=== PATIENT | male | born 1935 | race Caucasian/White ===

== ENCOUNTER 2021-11-14 19:42 | Inpatient (IN) | payer BC ==
[~2021-11-14] VITALS: Ht 172.7 cm; Wt 83.9 kg
[2021-11-14 19:51] VITALS: BP_SYST 122
--- NOTE | 2021-11-14 19:51 | NUR ---
Patient to ER bed 5 to gown for evaluation. Side rails up. Report given to Lu HAND.
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
--- NOTE | 2021-11-14 20:40 | NUR ---
ADDIS FROST Kwaw at bedside examining patient.
--- NOTE | 2021-11-14 20:45 | NUR ---
Lab at bedside
[2021-11-14 21:09] LABS: BASOPHILS # (AUTO) 0.1 K/uL (0.0-0.2); BASOPHILS % (AUTO) 1.1 % (0.0-2.0); EOSINOPHILS # (AUTO) 0.2 K/uL (0.0-0.4); EOSINOPHILS % (AUTO) 2.7 % (0.0-4.0); HEMATOCRIT 38.3 % (36-54); LYMPHOCYTES # (AUTO) 1.5 K/uL (1.0-5.5); LYMPHOCYTES % (AUTO) 16.5 % (20.5-51.5); MEAN CORPUSCULAR VOLUME 89 fL (79.0-98.0); MONOCYTES # (AUTO) 0.6 K/uL (0.0-1.0); MONOCYTES % (AUTO) 6.9 % (1.7-9.3); NEUTROPHILS # (AUTO) 6.7 K/uL (1.8-7.7); NEUTROPHILS % (AUTO) 72.8 % (40.0-70.0); PLATELET COUNT (AUTO) 297 K/uL (130-430); RED BLOOD CELL COUNT(AUTO) 4.29 MIL/uL (4.2-6.2); RED CELL DISTRIBUTION WIDTH 14.4 % (9.0-15.0); WHITE BLOOD COUNT (AUTO) 9.2 K/uL (4.8-10.8)
[2021-11-14 21:15] LABS: BILIRUBIN,URINE NEGATIVE (NEGATIVE); BLOOD, URINE NEGATIVE (NEGATIVE); CLARITY/URINE CLEAR (CLEAR); COLOR,URINE YELLOW (YELLOW); GLUCOSE,URINE NEGATIVE (NEGATIVE); KETONES,URINE TRACE (NEGATIVE); LEUKOCYTE ESTERASE ,URINE NEGATIVE (NEGATIVE); NITRITE, URINE NEGATIVE (NEGATIVE); PROTEIN URINE NEGATIVE (NEGATIVE); UROBILINOGEN,URINE 0.2 (0.2-1.0)
[2021-11-14 21:22] LABS: ANION GAP 8 (5-15); CALCIUM 9.9 mg/dL (8.4-11.0); CHLORIDE 102 mmol/L (98-107); GLUCOSE 151 mg/dL (70-99); POTASSIUM 3.9 mmol/L (3.5-5.1); UREA NITROGEN, BLOOD 18 mg/dL (8-21)
--- NOTE | 2021-11-14 21:25 | NUR ---
Admit bed requested Patient will be admitted to care of . Admitted to MED SURG unit. Diagnosis AGRESSIVE BEHAVIOR/AGITATION Inpatient (Yes or No) N Observation (Yes or No) Y Orientation concerns or request close to nursing station (Yes or No) Y Covid Status PENDING On vent or bipap N Isolation requirements N Needs a sitter Y From Home (Yes or if No enter name of facility) [facility] Requires Dialysis (Yes or No) N Med Rec Completed (Yes of No) Y
[2021-11-14 21:31] LABS: ALANINE AMINOTRANSFERASE 11 U/L (12-78); ALBUMIN 3.8 g/dL (3.4-4.8); ASPARTATE AMINOTRANSFERASE 18 U/L (10-37); TOTAL BILIRUBIN 0.7 mg/dL (0.0-1.0)
--- NOTE | 2021-11-14 21:50 | NUR ---
Covid and MRSA swab done and sent to Lab.
--- NOTE | 2021-11-14 22:00 | NUR ---
Patient resting in bed with side rails raised. Safety procautions in place. Requesting sitter for patient; notified charge nurse. No sitter available at this time, patient visible from nursing station. Patient states "I was upset earlier, but I'm okay now." Nad noted at this time.
--- NOTE | 2021-11-14 22:21 | NUR ---
# 20 gauge angiocath placed to right AC. Use of asceptic technique. Opsite placed over site. Blood return noted. Flushed with 10 cc of normal saline. No evidence of infiltration noted. Patient tolerated well.
[2021-11-14] MEDS ORDERED: RIVA15TA PO (22:59)
[2021-11-14] MEDS ORDERED: SER25 PO (22:59)
[2021-11-14] MEDS ORDERED: METF-518 PO (22:59)
[2021-11-14] MEDS ORDERED: CARB1TAB10 PO (22:59)
[2021-11-14] MEDS ORDERED: SENN-291 (22:59)
[2021-11-14] MEDS ORDERED: BISACODYL RC (22:59)
[2021-11-14] MEDS ORDERED: PEPTAB PO (22:59)
[2021-11-14] MEDS ORDERED: ALPR0.5T PO ×2 (22:59)
[2021-11-14] MEDS ORDERED: PROP10DR2 EACH EYE (22:59)
[2021-11-14] MEDS ORDERED: DIGO250T PO (22:59)
[2021-11-14] MEDS ORDERED: NEOM1OIN19 TP (22:59)
[2021-11-14] MEDS ORDERED: GUAI100S14 PO (22:59)
[2021-11-14] MEDS ORDERED: ACET325T PO (22:59)
[2021-11-14] MEDS ORDERED: VITD2000 PO (22:59)
--- NOTE | 2021-11-14 22:59 | NUR ---
Medication reconciliation completed with information provided by patient . Any prior medication reconciliation on file was reviewed and corrected.
--- NOTE | 2021-11-14 23:16 | NUR ---
Patient will be admitted to care of DR HAWKINS. Admitted to MED SURG unit. Will go to room 121 B. Belongings list completed. Complete and up to date summary report printed. SBAR report given to YAZAN Griffin at bedside with opportunity for questions.
--- NOTE | 2021-11-14 23:45 | NUR ---
ADMIT NOTE Received pt from ER to the floor with a diagnosis of Severe Agitation and Aggressive Behavior. SBAR report provided by ER nurse YAZAN Diehl. Patient is disoriented and trying to get out of bed and pulling at IV. Pt put in Trendelenburg position to keep from falling out of bed and was immediately effective. Pt is AOx1 and was oriented to being in hospital and room number. Pt in room with two other pts who require a sitter, nurse is sitter for all three patients. Admission process initiated.
[2021-11-15] VITALS: BP_SYST 144
--- NOTE | 2021-11-15 00:15 | NUR ---
Restraints Pt is disoriented and restless pulling at IV, removing clothes and chucks, and trying to get out of bed. Pt is in a room with RN as sitter. Bilateral soft wrist restraint were ordered and initiated at 0000. Pt tugging at restraints but does not appear to be additionally agitated. Pt still pulling chucks off.
[2021-11-15 06:00] VITALS: BP_SYST 147
--- NOTE | 2021-11-15 07:15 | NUR ---
Closing Notes Patient was calm and able to rest/sleep for a few hours this morning. Took his vital signs and assessed wrist from restraints use; no new skin issues. Pt much more alert but still confused. Pt assisted in bed bath, ivon care, and linen change by rolling side to side. Pt restraints were off during nursing interventions and put back on with more slack. Day sitter is present. Addendum: 11/15/21 at 1249 by [facility], YAZAN HAND Spoke with Mrs Zhao confirmed pt has no allergies. Notified pharmacy. Patient profile updated.
[2021-11-15 08:35] VITALS: BP_SYST 158
[2021-11-15 11:38] VITALS: BP_SYST 118
[2021-11-15 16:15] VITALS: BP_SYST 130
--- NOTE | 2021-11-15 19:30 | NUR ---
OPENING NOTES Received updated report from day nurse. Pt is laying awake in bed with a vague distant look and does not acknowledge me. He is softly mumbling to himself. Vital signs collected, IV flushed and patent, restraints loosened, and safety measures initiated.
[2021-11-15] MEDS: LORazepam 2 MG/ML VIAL IVP PRN (22:36)
--- NOTE | 2021-11-16 | NUR ---
Restraints discontinued Restraints have been discontinued to allow 24 hours of restraint and sitter free so he can return back to [facility].
[2021-11-16 00:34] VITALS: BP_SYST 131
[2021-11-16 08:00] VITALS: BP_SYST 138
[2021-11-16 12:00] VITALS: BP_SYST 142
[2021-11-16 17:22] VITALS: BP_SYST 124
[2021-11-16 20:00] VITALS: BP_SYST 127
[2021-11-16] MEDS: LORazepam 2 MG/ML VIAL IVP PRN (20:09)
--- NOTE | 2021-11-16 21:07 | NUR ---
Patient in bed resting at this time. Prn given for agitation. Turned repositioned q2. Will continue to monitor.
[2021-11-17 08:00] VITALS: BP_SYST 134
[2021-11-17] MEDS ORDERED: RIVAROXABAN 15 MG TABLET PO ONE (09:00)
[2021-11-17] MEDS ORDERED: DIGOXIN 0.25 MG TABLET PO ONE (09:00)
--- NOTE | 2021-11-17 10:53 | NUR ---
DC orders received for discharge back to [facility]. CREDIT CARD INTERVIEWER contacted [facility] patient was living in the Assisted Living side of the facility and brought in to [facility] for agitation, has since been stabilized, hx of Dimentia . CREDIT CARD INTERVIEWER informed facility that Pt. is ready to be transferred back, was notified that they were unsure if Pt. would be readmitted today, no intake staff available and would return call in 2 hours. Pt. is also HCP, this telegraphic typewriter operator prepared DC packet and faxed to , contacted weekend slot floor person for HCP DAVID Rodriguez informed of DC orders advised that HCP system is down and theyre might be a delay in discharges this weekend. Addendum: 11/17/21 at 1152 by Aida Blair LCSW Received call from daughter to inquire if psych consult had been completed, no note for consult in chart. Spoke with RN for follow up with previously requested psych consult. RN indicate she would consult with treating MD as he was medically cleared but psych consult remains pending.
--- NOTE | 2021-11-17 11:46 | NUR ---
Received phone call from correctional counselor/case manager Khadijah TannerStated patient has a discharge order with a psych evaluation order pending. I spoke with A Ric FROST regarding pending psych consult. informed me to discontinue psych consult order.I informed case manger per MD discontinue psych consult, not needed.
[2021-11-17 12:00] VITALS: BP_SYST 126
[2021-11-17 16:00] VITALS: BP_SYST 122
--- NOTE | 2021-11-17 19:38 | NUR ---
1934: RECEIVED PT CALM, CONFUSED, VSS. BED ALARM ON, BED IN LOW POSITION. NEAR NURSES STATION.
--- NOTE | 2021-11-17 19:39 | NUR ---
RECEIVED PT LYING IN BED, NO DISTRESS NOTED, AAOX2, O2 2L O2 SAT 96%. DOUBLE LUMEN PICC LINE TO LUE. F/C DRAINING TEA COLOR URINE. MILD EDEMA TO BLE ELEVATED ON PILLOWS. WEAK PULSES NOTED TO BLE. REPOSITIONED TO RT SIDE. Addendum: 11/17/21 at 2251 by [facility] YAZAN Willingham RN THIS NOTE IS NOT INTENDED FOR THIS PT
--- NOTE | 2021-11-17 20:00 | NUR ---
RECEIVED THIS [place] LYING IN BED, NO DISTRESS NOTED, DENIES PAIN. CONFUSED, ATTEMPTING TO GRAB MY ARM UPON REPOSITIONING. SALINE LOCK TO LT FA SITE WRAPPED. PUTS LEGS OVER RAIL. BED IN LOW POSITION, BED ALARM ON.
[2021-11-18 00:24] VITALS: BP_SYST 136
--- NOTE | 2021-11-18 07:14 | NUR ---
0715: PT LYING IN BED, ATTEMPTING TO REMOVE GOWN. ENDORSED TO JONATAN RN PT ATTEMPT TO GET OUT OF BED AND EXHIBITS AGGRESSIVE BEHAVIOR.
--- NOTE | 2021-11-18 07:18 | NUR ---
SBAR REPORT RECEIVED FROM ALEXANDRA HAND, ALL CARES ASSUMED. PT LAYING IN BED WITH EYES CLOSED. BED IN LOW AND LOCKED POSITION, CALL LIGHT WITHIN REACH.
[2021-11-18 08:00] VITALS: BP_SYST 127
[2021-11-18] MEDS: RIVAROXABAN 15 MG TABLET PO SCH (09:22)
--- NOTE | 2021-11-18 10:30 | NUR ---
PT ASKING "HOW WAS YOUR TRIP?", THIS NURSE ATTEMPTED TO REORIENT PT. PT ASKED AGAIN ABOUT GOING ON A FLIGHT SOMEWHERE. WILL CONTINUE TO REORIENT NEEDED. PT CALM AND COOPERATIVE.
--- NOTE | 2021-11-18 14:30 | NUR ---
BED BATH DONE, LINENS AND GOWN CHANGED. PT TOLERATED WELL.
[2021-11-18 18:06] VITALS: BP_SYST 131
--- NOTE | 2021-11-18 19:26 | NUR ---
Opening note Received patient resting in bed, awake, AOx1. No distress, on room air, non labored breathing, skin is warm, dry. IV to LFA is SL. He was reposition with assistance of day shift nurse YAZAN Cramer. Bed is locked in locked in lowest position, side rails up and bed alarm on.
--- NOTE | 2021-11-18 19:36 | NUR ---
SBAR REPORT GIVEN TO LEX HAND, ALL CARES ENDORSED.
[2021-11-18 20:00] VITALS: BP_SYST 134
[2021-11-19 00:50] VITALS: BP_SYST 137
--- NOTE | 2021-11-19 00:50 | NUR ---
V/S, patient care VSS, patient was provided with bed bath, new linens and repositioned-turned. He was not aggressive nor combative.
--- NOTE | 2021-11-19 04:15 | NUR ---
rounds, reposition Patient is calm, resting with eyes closed. He was momentarily awakened for reposition and ivon-care. He opened his eyes, spoke garbled words, yet he was calm, and cooperative. He closed his eyes again. Safety precautions in place.
--- NOTE | 2021-11-19 07:10 | NUR ---
SBAR REPORT RECEIVED FROM LEX HAND, ALL CARES ASSUMED. PT LAYING IN BED WITH EYES CLOSED. BED IN LOW AND LOCKED POSITION, BED ALARM ACTIVE. CALL LIGHT WITHIN REACH.
--- NOTE | 2021-11-19 07:14 | NUR ---
closing note Patient resting in comfortable position. No distress, no agitation. He was provided with ivon-care and was not combative. Patient is stable. endorsed care to YAZAN Cramer
[2021-11-19 08:00] VITALS: BP_SYST 124
[2021-11-19] MEDS: RIVAROXABAN 15 MG TABLET PO SCH (09:11)
[2021-11-19 12:05] VITALS: BP_SYST 122
--- NOTE | 2021-11-19 12:33 | NUR ---
CALLED AND LEFT MESSAGE FOR PT DC BACK TO [facility].
[2021-11-19] MEDS ORDERED: SENNOSIDES/DOCUSATE SODIUM 1 TAB TABLET(SENOKOT-S) PO PRN (12:45)
[2021-11-19] MEDS ORDERED: guaiFENesin 200 MG/10 ML UDC PO PRN (12:45)
--- NOTE | 2021-11-19 13:21 | NUR ---
LEFT MESSAGE WITH [facility] REQUESTING FOR PHONE BACK RE DC BACK TO THE FACILITY.
[2021-11-19] MEDS ORDERED: BISACODYL 10 MG/SUPPOSITORY RC PRN (13:30)
--- NOTE | 2021-11-19 13:33 | NUR ---
[facility] CALLED BACK , [facility] SPOKE WITH PT'S RN.
[2021-11-19] MEDS ORDERED: NEOMY SULF/BACITRAC ZN/POLY 28 GM OINT..GM. TP PRN (13:45)
--- NOTE | 2021-11-19 15:06 | NUR ---
MARIA L MADE AWARE THAT [facility] IS ACCEPTING PT BUT PT OR INSURANCE WILL PROVIDE AMBULANCE. MARIA L SAID SHE WILL TOUCH BASE WITH FAMILY IT INVOLVES EXPENSES AND SHE WILL CALL US BACK.
[2021-11-19] MEDS: CARBIDOPA/LEVODOPA 25/100 MG TABLET PO SCH ×3 (15:07→20:48)
[2021-11-19 15:15] VITALS: BP_SYST 129
[2021-11-19] MEDS ORDERED: PEG 400/HYPROMELLOSE/GLYCERIN 15 ML DROPS EACH EYE PRN (17:00)
--- NOTE | 2021-11-19 18:39 | NUR ---
PER RN JONATAN, [facility] CALLED TELLING HER NOT TO SEND THE PATIENT. JONATAN NO ABLE TO GET NURSE'S NAME. LEFT MESSAGE TO MARIA L AT [phone].
[2021-11-19] MEDS: metFORMIN HCL 500 MG TABLET PO SCH (18:45)
--- NOTE | 2021-11-19 19:30 | NUR ---
SBAR report done. Pt's sleeping in bed w/o distress.
--- NOTE | 2021-11-19 19:41 | NUR ---
SBAR REPORT GIVEN TO NIGHT RN, ALL CARES ENDORSED.
[2021-11-19 20:00] VITALS: BP_SYST 121
[2021-11-19] MEDS ORDERED: QUEtiapine FUMARATE 25 MG TABLET PO SCH (21:00)
[2021-11-19] MEDS ORDERED: ALPRAZolam 0.25 MG TABLET PO SCH (21:00)
[2021-11-19] MEDS ORDERED: ALPRAZolam 0.25 MG TABLET PO PRN (21:00)
[2021-11-20 08:30] VITALS: BP_SYST 118
[2021-11-20] MEDS ORDERED: RIVAROXABAN 15 MG TABLET PO SCH (09:00)
[2021-11-20] MEDS ORDERED: DIGOXIN 0.25 MG TABLET PO SCH (09:00)
[2021-11-20] MEDS ORDERED: CHOLECALCIFEROL (VITAMIN D3) 2,000 UNIT TABLET PO SCH (09:00)
[2021-11-20] MEDS: metFORMIN HCL 500 MG TABLET PO SCH (09:09)
[2021-11-20] MEDS: CARBIDOPA/LEVODOPA 25/100 MG TABLET PO SCH (09:11)
[2021-11-20] MEDS: RIVAROXABAN 15 MG TABLET PO SCH (09:16)
--- NOTE | 2021-11-20 09:18 | NUR ---
received message from Lynn charge last night stating that [facility] called and indicate not accepting patient. 11/20/21 called [facility] 9:15 am spoke with Gaby , provided above information. Gaby confirmed patient can be sent back to [facility]. When you call [phone] asked to be transfer to Memory care Unit. called the floor and spoke with Lora provided information and asked her to call [facility] ambulance to transfer [phone] trk# [id number]
--- NOTE | 2021-11-20 09:33 | NUR ---
[facility] POLICE SHIFT COMMANDER AT 2PM FOR [facility]
--- NOTE | 2021-11-20 11:00 | NUR ---
PT SEEN SITTING ON THE FOOT OF BED, PT TRYING TO GET UP BUT UNABLE DUE TO WEAKNESS. Addendum: 11/20/21 at 1254 by Harvey Crenshaw RN ASSISTED KELLY TO BED.
--- NOTE | 2021-11-20 12:30 | NUR ---
PT ASSISTED BACK TO BED AFTER EATING A FEW BITES FROM HIS LUNCH TRAY. PT SAT ON THE EOB.
[2021-11-20 13:21] VITALS: BP_SYST 120
[2021-11-20 13:24] VITALS: BP_SYST 120
--- NOTE | 2021-11-20 13:40 | NUR ---
REPORT GIVEN TO JOELLE POLO OF [facility].
--- NOTE | 2021-11-20 16:00 | NUR ---
DC PATIENT. PT DISCHARGED TO [facility]. PT ON STABLE CONDITION. PT PICKED UP BY AMBULANCE STAFF/ REPORT WAS GIVEN EARLIER TO NURSE. FAMILY IS MADE AWARE.
== END 2021-11-20 16:00 | DRG 57 ==
LOC: SED 19:42 → SMU 21:23 → OBSVTOIN 11-16 10:47
PROVIDERS: ADMIT Internal Medicine; ATTEND Internal Medicine
DX: G20 Parkinson's disease (principal); R65.10 Systemic inflammatory response syndrome (SIRS) of non-infectious origin without acute organ dysfunction; I11.0 Hypertensive heart disease with heart failure; Z20.822 Contact with and (suspected) exposure to COVID-19; F02.80 Dementia in other diseases classified elsewhere, unspecified severity, without behavioral disturbance, psychotic disturbance, mood disturbance, and anxiety; I48.91 Unspecified atrial fibrillation; I50.9 Heart failure, unspecified; Z79.82 Long term (current) use of aspirin; Z79.899 Other long term (current) drug therapy; Z79.1 Long term (current) use of non-steroidal anti-inflammatories (NSAID)
CPT/HCPCS: 36415; 80053; 81003; 84484; 85025; 87081; 93005; G0378; J2060